=== PATIENT | female | born 1980 | race Caucasian/White ===

== ENCOUNTER 2016-12-31 11:38 | Day surgery (SDC) | payer OTHER ==
[~2016-12-31] VITALS: Ht 172.7 cm; Wt 57.0 kg
[~2016-12-31 11:38] MED LIST: ALPR1TAB7 PO; BENZ200C44 PO; CITA10TA9 PO; GUAI120L57 PO; KLO5T PO; Lactated Ringer's 1,000 ML IV ONE; MELA3TAB11 PO; OMEP40CA36 PO; QUET50TA PO
[2016-12-31] MEDS ORDERED: fentaNYL-PF 50 mCg/mL 2 mL Inj ONE (11:39)
[2016-12-31] MEDS ORDERED: Propofol 10,000 mCg/mL 20 mL Inj ONE (11:39)
[2016-12-31 12:06] VITALS: BP 114/73; PULSE 78; RESP 16; O2SAT 98
--- NOTE | 2016-12-31 12:46 | PCM.HPANE ---
Patient Data Date of Service: Dec 31, 2016 (3412) Surgeon Admitting Provider: Attending Provider:Julianne Vides MD Primary Care Physician:Mora Morales ARNP Other Provider:Trell Negron Anesthesia Reason for Visit Epigastric Pain Ht/WT & BMI Height (Feet): 5 Height (Inches): 8 Weight (Kilograms): 57 Body Mass Index 19.00 Allergies Coded Allergies: No Known Allergies (Unverified Allergy, Unknown, 12/30/16) Past Anesthesia History Anesthesia History: Denies:: Abnormal Airway, Anesthesia Reactions, Difficult Intubation, Fam Anesthesia Reaction, Fam Malignant Hypertherm, Malignant Hyperthermia Diabetes History Hx Diabetes?: No MRSA MRSA: Yes (ARM YEARS AGO) Medications Reported Medications Quetiapine Fumarate (Seroquel)50 Mg Whnwtz71 Mg PO HS Ref 0 12/30/16 Clonazepam 0.5 Mg Tablet0.5 Mg PO BID PRN For Anxiety Ref 0 12/30/16 Citalopram 10 Mg Hhirrl13 Mg PO BID Ref 0 12/30/16 Discontinued Reported Medications Omeprazole 40 Mg Capsule.dr40 Mg PO DAILY Ref 0 12/30/16 Melatonin 3 Mg Tablet.er3 Mg PO HS 12/30/16 Guaifenesin/Codeine Phosphate (Codeine-Guaifen 10-100 mg/5 ml)120 Ml Xicvmn772 Ml PO HS 12/30/16 Benzonatate 200 Mg Jblxwkk783 Mg PO TID 12/30/16 Alprazolam 1 Mg Tablet1 Mg PO TID PRN For Anxiety Ref 0 12/30/16 History History of ENT Problems?: No HEENT History: Denies:: Abnormal Airway Difficult Intubation Dysphagia Hearing Problem Hx of Heart Problems?: No Cardiovascular History: Denies:: AICD Congestive Heart Failure Hypertension Pacemaker Valvular Heart Disease Hx of Respiratory Problem?: Yes Respiratory History: Positive for:: Cough Denies:: Tuberculosis Hx Neurologic Problems?: No Neurological History: Denies:: CVA Hx of GI Problems?: Yes Gastrointestinal History: Positive for:: Rectal Bleeding Denies:: Cirrhosis Diverticulitis Gall Bladder Disease Gastroesphageal Reflux Hiatal Hernia Liver Disease Musculoskeletal History: Denies:: Fibromyalgia Joint Replacement Psycho Social History: Positive for:: Anxiety Hx Depression Hx Surgeries?: Yes (HIP A CHILD) Hx Any Other Health Problems?: No Hx Diabetes: No Hx Alcohol Use: NoHx Substance Use: Yes (in past )Have You Smoked inLast 12 mo : Yes Stop/Bang Treated for Sleep Apnea?: No Do You Have a CPAP Machine?: No S-Snoring: Do You Snore Loudly: No T-Tired: feel tired, fatigued: Yes O-Obsered: Observed not breath: No P-Blood Pressure: treated: No B- Body Mass Index > 35 kg/m2: No A- Age over 50: No N- Neck Large Circumference: No G- Gender Male: No MATTI Total Score: 1 MATTI Risk Assessment: Low Risk, <3 Yes Risk Assessment Category Category 1A: Patient has history of documented sleep apnea, and HAS NOT received any narcotic, sedative or anesthesia administration during this stay. Category 1B: Patient has history of documented sleep apnea, and HAS received any narcotic , sedative or anesthesia administration during this stay Category 2: Patient has SUSPECTED Obstructive Sleep Apnea, and HAS received any narcotic , sedative or anesthesia administration during this stay. Category 3: Patient has SUSPECTED Obstructive Sleep Apnea and HAS NOT received narcotic, sedative or anesthesia administration during this stay. Category 4: Outpatient in Procedural Areas with known sleep apnea or who screen positive for High Risk via the STOP/BANG questionnaire. Exam Exam Vital Signs Vital Signs Date Time Temp Pulse Resp B/P Pulse Ox O2 Delivery O2 Flow Rate FiO2 12/31/16 12:06 37.1 78 16 114/73 98 Room Air General Appearance: Alert, Oriented X3, Mild Distress (anxiety) Lungs: Clear to Auscultation Heart: Exam Unremarkable Plan Impression Patient chart reviewed, patient interviewed and anesthestic plan with risks, benefits, and alternatives discussed, and informed consent obtained. ASA Physical Status: ASA2 Mod Systemic Disease Anesthetic Plan: GA Bene/Risks/Altern/Consents: Yes HP Complete Prior to Induction: Yes Lowell Colorado MD Dec 31, 2016 12:46
[2016-12-31] MEDS ORDERED: Lactated Ringer's 1,000 ML IV SCH (12:47)
[2016-12-31] MEDS ORDERED: MetoCLOpramide 5 mg/mL 2 mL Inj IVPUSH PRN (12:50)
[2016-12-31] MEDS ORDERED: Ondansetron 2 mg/mL 2 mL Inj IVPUSH PRN (12:50)
[2016-12-31 13:05] VITALS: BP 95/65; PULSE 69; RESP 12; O2SAT 96
--- NOTE | 2016-12-31 13:06 | PCM.ANEP2 ---
Post Anesthesia Evaluation ASA/CMS Post Anesthesia VS in Patient's Normal Range?: Yes Resp Stable; Airway Patent?: Yes CV Function & Hydration Stable: Yes Mental Status Recovered?: Yes Pain control Satisfactory?: Yes N/V Control Satisfactory?: Yes Lowell Colorado MD Dec 31, 2016 13:06
--- NOTE | 2016-12-31 13:06 | PCM.ANEP1 ---
Post Anesthesia Phase 1 PACU Phase 1 Assessment Date of Service: Dec 31, 2016 (0943) Vital Signs 36.5, 96%, 66, 16 95/65 Vital Signs Date Time Temp Pulse Resp B/P Pulse Ox O2 Delivery O2 Flow Rate FiO2 12/31/16 12:06 37.1 78 16 114/73 98 Room Air Anesthetic Administered: GA Level of Alertness: Awake, talking BIRD's with Equal Strength: Yes Pain: No Nausea or Vomiting: No Oxygen Delivery: Room Air Lungs: Clear to Auscultation Dermatome Level: Full Sensation Summary uneventful sedation Lowell Colorado MD Dec 31, 2016 13:06
[2016-12-31 13:15] VITALS: BP 103/69; PULSE 64; RESP 12; O2SAT 95
[2016-12-31 13:29] VITALS: BP 104/69; PULSE 63; RESP 14; O2SAT 98
--- NOTE | 2016-12-31 13:44 | ENDO ---
[address] [address] ENDOSCOPY PROCEDURE PATIENT: RAY URRUTIA : 1980 MR#: [id number] ADMIT: 12/31/2016 JOB ID: [id number] PROCEDURE: Esophagogastroduodenoscopy. INDICATION: Epigastric abdominal pain. ANESTHESIA: Patient's ASA classification, Mallampati score, and medications as per anesthesia note. INSTRUMENT USED: GIF H 180 J. PROCEDURE DETAILS: After informed consent was obtained, the patient was brought into the GI suite, where she was placed on oxygen via nasal cannula and monitored with continuous pulse oximeter, telemetry, and blood pressure monitoring. A time-out was performed, then she was placed in the left lateral decubitus position and a bite block was placed. Medications were then administered for sedation. The EGD scope was then inserted through the bite block and advanced under direct visualization to the 2nd portion of duodenum without difficulty. FINDINGS: 1. Normal appearing duodenal bulb, first and second portion. Multiple random biopsies were obtained. 2. Normal-appearing pylorus antrum and gastric body. 3. Retroflexed views in the gastric body revealed a normal-appearing cardia and fundus. 4. Multiple random biopsies were obtained throughout the antrum and body of the stomach. 5. Normal appearing GE junction at 42 cm. 6. Normal-appearing esophagus. IMPRESSION: Normal esophagogastroduodenoscopy exam to second portion of the duodenum. No findings to explain the patient's abdominal pain. Recommend the patient obtain laboratories that were ordered at her clinic visit back on November 23, 2016, by Dr. Lora. Also recommend colonoscopy to rule out any mucosal disease. COMPLICATIONS: None. ESTIMATED BLOOD LOSS: Less than 5 mL.
--- NOTE | 2017-01-04 14:27 | PATH ---
SURGICAL PATHOLOGY Attending Physician:Arabella Latham CASE STATUS: Signed Out PATIENT NAME: RAY URRUTIA PID: [id number] : 1980 DATE COLLECTED:12/31/2016 22:09 SPECIMEN: 1: Duodenum, Biopsy 2: Gastric, Biopsy CLINICAL HISTORY: EPIGASTRIC PAIN 1). DUODENUM BIOPSY 2). GASTRIC BIOPSY FINAL DIAGNOSIS: 1. Duodenum, Biopsy: Normal duodenal mucosa. No significant inflammation identified. Negative for features of celiac disease. No evidence of malignancy or dysplasia. 2. Gastric Biopsy: Gastric corpus and antrum with chronic active gastritis. Positive for Helicobacter organisms. Negative for intestinal metaplasia. No evidence of malignancy or dysplasia. ICD10 B96.81 GROSS DESCRIPTION: The specimen is received in two formalin filled containers labeled with the patient's name. 1). The specimen is sublabeled "duodenum" and consists of 6 portions of tissue which aggregate to 0.4 x 0.4 x 0.3 CM. Specimen is entirely submitted in cassette 1A. 2). The specimen is sublabeled "gastric" and consists of 3 portions of tissue which aggregate to 0.3 x 0.3 x 0.3 CM. The specimen is entirely submitted in cassette 2A. 12/31/2016 DAC MICRO DESCRIPTION: 2) The lamina propria of the gastric corpus and antrum is expanded by acute and chronic inflammatory cells. An immunostain for Helicobacter organisms is done because of the acute inflammation and is positive. ICD-9 CODES: CPT CODES: 1: 69770 2: 13496, 58053 Electronically Signed Out Ward Villeda MD [facility] [address], [place] [address] Technical component performed at [facility], [facility] [address], [place], [address]
== END 2016-12-31 23:59 | disposition home or self-care (01) ==
LOC: END 11:38
PROVIDERS: ATTEND Internal Medicine Gastroenterology
DX: K29.50 Unspecified chronic gastritis without bleeding (principal); B96.81 Helicobacter pylori [H. pylori] as the cause of diseases classified elsewhere; F41.9 Anxiety disorder, unspecified; Z87.898 Personal history of other specified conditions
CPT/HCPCS: 43239; J2250; J3010; J7120